=== PATIENT | female | born 1950 ===

== ENCOUNTER 2018-01-11 14:36 | Inpatient (IN) | payer MEDICAID, OTHER ==
[2018-01-11 15:06] VITALS: BMI 27.8
--- NOTE | 2018-01-11 15:34 | ED PDOC ---
Arrival/HPI - General Chief Complaint: Chest Pain Time Seen by Provider: 01/11/18 15:30 Historian: Patient, Family (daughter) - History of Present Illness Narrative History of Present Illness (Text): 01/11/18 15:33 Per daughter, at bedside translating (amharic), pt p/w + 5-6 days onset of intermittent and now constant substernal chest pain (non-radiating), at most pain is 5/10; pt states she is slightly sob, + increased fatigue/weakness; also noted b/l leg swelling and left arm swelling x 6 days; pt [place] the [place] from [facility] last night; pt states she has gained 10lbs of weight over the last 3 weeks; pt states no fever/chills/sweats, no palpitations , no abd pain, no n/v, no numbness/tingling, no urinary/bowel changes, no rashes , no fall/trauma/sick contact. pt denied LOC, no lightheadedness + mild headache pt is here for further eval pt's without other complaints. PCP: None cards: Pamela Foley pt had 4 vessel bypass last year at [facility] pt also received valve replacement last year (bovine) and is on coumadin + hx of breast cancer? Time/Duration: < week Symptom Onset: Gradual Symptom Course: Unchanged Quality: Tightness, Cramping Severity Level: 5, Moderate Activities at Onset: Rest Context: Home Past Medical History - Provider Review Nursing Documentation Reviewed: Yes - Travel History Have you recently traveled outside [place] w/in the past 3 mons?: No - Past History Past History: No Previous - Infectious Disease Hx of Infectious Diseases: None - Reproductive Menopause: Yes Currently : No - Cardiac Hx Cardiac Disorders: Yes Hx Hypertension: Yes Other/Comment: Open heart - Pulmonary Hx Respiratory Disorders: No - Neurological Hx Neurological Disorder: No - HEENT Hx HEENT Disorder: No - Renal Hx Renal Disorder: No - Endocrine/Metabolic Hx Endocrine Disorders: No - Hematological/Oncological Hx Blood Disorders: No - Integumentary Hx Dermatological Disorder: No - Musculoskeletal/Rheumatological Hx Musculoskeletal Disorders: No - Gastrointestinal Hx Gastrointestinal Disorders: No - Genitourinary/Gynecological Hx Genitourinary Disorders: No - Psychiatric Hx Psychophysiologic Disorder: No Hx Substance Use: No - Surgical History Other/Comment: open heart and left breast mastectomy. - Anesthesia Hx Anesthesia: Yes Family/Social History - Physician Review Nursing Documentation Reviewed: Yes Family/Social History: No Known Family HX Smoking Status: Never Smoked Hx Alcohol Use: No Hx Substance Use: No Hx Substance Use Treatment: No Allergies/Home Meds Allergies/Adverse Reactions: Allergies No Known Allergies Allergy (Verified 01/11/18 15:06) Review of Systems - Review of Systems Constitutional: Fatigue, Weight Change Eyes: Normal ENT: Normal Respiratory: SOB Cardiovascular: Chest Pain. absent: Palpitations Gastrointestinal: Normal Genitourinary Female: Normal Musculoskeletal: Normal, Other (lower leg swelling/left arm swelling) Skin: Normal Neurological: Normal Endocrine: Normal Hemo/Lymphatic: Normal Psychiatric: Normal Physical Exam Vital Signs Reviewed: Yes Vital Signs Temp Pulse Resp BP Pulse Ox 01/11/18 15:06 98.6 F 70 18 143/57 L 98 Temperature: Afebrile Blood Pressure: Hypertensive Pulse: Regular Respiratory Rate: Normal Appearance: Positive for: Well-Appearing, Non-Toxic, Uncomfortable, Other ( resting in bed, alert/awake, GCS = 15, oriented x 3, NAD, cooperative) Pain Distress: None Mental Status: Positive for: Alert and Oriented X 3 - Systems Exam Head: Present: Atraumatic, Normocephalic Pupils: Present: PERRL, Other (wearing eyeglasses, no nystagmus, no photophobia , sclera anicteric) Extroacular Muscles: Present: EOMI Conjunctiva: Present: Normal Ears: Present: Normal Mouth: Present: Moist Mucous Membranes, Normal Lips, Normal Teeth Pharnyx: Present: Normal Nose (External): Present: Atraumatic Nose (Internal): Present: Normal Inspection Neck: Present: Normal Range of Motion, Trachea Midline, Other (intact ROM, no step off). No: Meningeal Signs, MIDLINE TENDERNESS Respiratory/Chest: Present: Clear to Auscultation, Good Air Exchange, Other ( coarse basiliar breath sounds, no asymmetries, no tachypenia, no w/r/r). No: Respiratory Distress, Accessory Muscle Use Cardiovascular: Present: Regular Rate and Rhythm, Murmurs (+ loud systolic murmur noted, no clicks), Normal S1, S2. No: Tachycardic Abdomen: Present: Normal Bowel Sounds, Other (well nourished female, no focal tenderness, no springer's sign, no mcburney's point tenderness, no ) Back: Present: Normal Inspection, Other (no step off, no gross deformities). No : CVA Tenderness, Midline Tenderness Upper Extremity: Present: Normal Inspection, Edema (+ extensive left arm swelling with slight redness of forearm skin; no focal tenderness noted on exam , intact ROM, strength 5/5 grossly intact in all limbs), Normal ROM, NORMAL PULSES, Neurovascularly Intact Lower Extremity: Present: Normal Inspection, Edema (+1/5 b/l lower ext distal 1/ 3 of tib/fib; intact ROM, strength 5/5 grossly intact in all limbs, neurovasc intact b/l), NORMAL PULSES, Normal ROM, Neurovascularly Intact, Capillary Refill < 2 s. No: CALF TENDERNESS, Shila's Sign Neurological: Present: GCS=15, CN II-XII Intact, Speech Normal Skin: Present: Warm, Normal Color, Other (cap refill < 1sec, no ulcerations, no petechiae; no rashes) Psychiatric: Present: Alert, Oriented x 3 Medical Decision Making ED Course and Treatment: 01/11/18 15:34 Impression: chest pain, leg swelling, weakness i have consider all the differential diagnosis regarding pt's chief medical complaints/clinical findings, including but are not limited to: chest pain, leg swelling, weakness; r/o ACS A/P: chest pain, leg swelling, weakness - labs - iv - xray - us - observe - supportive care 1630 pt is currently comfortable pt is not in acute distress pt/daughter are made aware of her medical results agrees with admission 01/11/18 17:00 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, made aware, agrees with admission Re-evaluation Time: 17:00 Reassessment Condition: Improving,but remains with symptoms - Lab Interpretations Lab Results: 01/11/18 15:30 01/11/18 15:30 Lab Results 01/11/18 16:30: Urine Color Yellow, Urine Appearance Clear, Urine pH 7.0, Ur Specific [place] 1.015, Urine Protein Negative, Urine Glucose (UA) 250 H, Urine Ketones Negative, Urine Blood Negative, Urine Nitrate Negative, Urine Bilirubin Negative, Urine Urobilinogen 0.2, Ur Leukocyte Esterase Negative 01/11/18 15:30: pO2 42, VBG pH 7.37, VBG pCO2 52.0, VBG HCO3 30.1 H, VBG Total CO2 31.7 H, VBG O2 Sat (Calc) 77.1 H, VBG Base Excess 3.6 H, VBG Potassium 4.2, Sodium 136.0, Chloride 103.0, Glucose 179 H, Lactate 1.7, FiO2 21.0, Venous Blood Potassium 4.2 01/11/18 15:30: Sodium 138, Chloride 102, Potassium 4.5, Carbon Dioxide 28, Anion Gap 12, BUN 16, Creatinine 1.0, Est GFR ( Amer) > 60, Est GFR (Non- Af Amer) 55, Random Glucose 179 H, Calcium 9.3, Magnesium 2.0, Total Bilirubin 0.6, AST 46 H, ALT 92 H, Alkaline Phosphatase 112, Lactate Dehydrogenase 764 H, Total Creatine Kinase 136, Troponin I < 0.01, NT-Pro-B Natriuret Pep 773 H, Total Protein 6.4, Albumin 3.8, Globulin 2.6, Albumin/Globulin Ratio 1.4 01/11/18 15:30: PT 25.2 H, INR 2.18 H, APTT 40.8 H 01/11/18 15:30: WBC 9.2, RBC 4.01, Hgb 12.0, Hct 35.6 L, MCV 88.8, MCH 29.9, MCHC 33.7, RDW 12.8, Plt Count 230, MPV 11.6 H, Gran % 59.4, Lymph % (Auto) 31.3 , [place] % (Auto) 6.1 H, Eos % (Auto) 2.7, Baso % (Auto) 0.5, Gran # 5.43, Lymph # (Auto) 2.9, [place] # (Auto) 0.6, Eos # (Auto) 0.3, Baso # (Auto) 0.05 I have reviewed the lab results: Yes Interpretation: Abnormal lab values (elevated BNP) - RAD Interpretation Narrative RAD Interpretations (Text): 01/11/18 17:36 lower ext u/s with left arm u/s - NO DVT 01/11/18 17:38 CXR - sternotomy wires slightly rotated pulm vascular congestion noted Radiology Orders: 01/11/18 15:31 CHEST PORTABLE [RAD] Stat DUPLEX LOWER EXTRM VEIN BILAT [US] Stat DUPLEX UPPER EXTRM VEIN LEFT [US] Stat Calender Operator Helper: ED Physician, Radiologist - EKG Interpretation EKG Interpretation (Text): 01/11/18 17:38 Sinus rhythm at 65 bpm with 1st degree av block, LAD, no ectopy, non-specific st -t changes, voltage criteria LVH; ABNL EKG; no old ekg to compare with Interpreted by ED Physician: Yes Type: 12 lead EKG Comparison: No previous EKG avail. - Medication Orders Current Medication Orders: Discontinued Medications Furosemide (Lasix) 40 mg IVP STAT STA Stop: 01/11/18 16:58 Disposition/Present on Arrival - Present on Arrival Any Indicators Present on Arrival: No History of DVT/PE: No History of Uncontrolled Diabetes: No Urinary Catheter: No History of Decub. Ulcer: No History Surgical Site Infection Following: None - Disposition Have Diagnosis and Disposition been Completed?: Yes Diagnosis: Chest pain with moderate risk for cardiac etiology, Respiratory distress, Leg edema, Arm edema Disposition: HOSPITALIZED Disposition Time: 17:30 Patient Plan: Admission, Telemetry Condition: STABLE
[2018-01-11 15:56] LABS: VENOUS BLOOD GAS BASE EXCESS 3.6 mmol/L (0.0-2.0); VENOUS BLOOD GAS PO2 42 mm/Hg (30-55); VENOUS BLOOD PH 7.37 (7.32-7.43)
[2018-01-11 16:09] LABS: ALB/GLOB RATIO 1.4 (1.1-1.8); ALBUMIN 3.8 g/dL (3.0-4.8); ALT/SGPT 92 U/L (7-56); AST/SGOT 46 U/L (14-36); BLOOD UREA NITROGEN 16 mg/dL (7-21); CALCIUM 9.3 mg/dL (8.4-10.5); GFR AFRICAN-AMERICAN > 60; GFR NON-AFRICAN AMERICAN 55
[2018-01-11 16:20] LABS: B-TYPE NATRIURETIC PEPTIDE 773 pg/mL (0-450); TROPONIN I < 0.01 ng/mL
[2018-01-11 16:23] LABS: BASO # 0.05 K/mm3 (0.0-2.0); BASO % 0.5 % (0.0-3.0); EOS # 0.3 (0.0-0.7); EOS % 2.7 % (1.5-5.0); GRAN # 5.43 (1.4-6.5); GRAN % 59.4 % (50.0-68.0); LYMPH # 2.9 (1.2-3.4); LYMPH % 31.3 % (22.0-35.0); MEAN CELL VOLUME 88.8 fl (80.0-105.0); MEAN CORPUSCULAR HEMOGLOBIN 29.9 pg (25.0-35.0); MEAN CORPUSCULAR HGB CONC 33.7 g/dl (31.0-37.0); MEAN PLATELET VOLUME 11.6 fl (7.0-11.0); MONO # 0.6 (0.1-0.6); MONO % 6.1 % (1.0-6.0); RBC 4.01 10^6/uL (3.5-6.1); RED CELL DISTRIBUTION WIDTH 12.8 % (11.5-14.5); WHITE BLOOD COUNT 9.2 10^3/ul (4.5-11.0)
[2018-01-11 16:30] LABS: INR 2.18 (0.93-1.08); PARTIAL THROMBOPLASTIN TIME 40.8 Seconds (25.1-36.5); PROTHROMBIN TIME 25.2 SECONDS (9.4-12.5)
[2018-01-11 17:04] LABS: URINE BILIRUBIN NEGATIVE (NEGATIVE); URINE BLOOD NEGATIVE (NEGATIVE); URINE GLUCOSE (UA) 250 mg/dL (NEGATIVE); URINE LEUKOCYTE ESTERASE NEGATIVE Leu/uL (NEGATIVE); URINE PROTEIN NEGATIVE mg/dL (<30 mg/dL); URINE UROBILINOGEN 0.2 E.U./dL (<1 E.U./dL)
[2018-01-11 17:07] LABS: URINE APPEARANCE CLEAR (CLEAR); URINE COLOR YELLOW (YELLOW)
[2018-01-11] MEDS: Vancomycin 1gm in NS 250ml 1 GM/250 ML BAG IVPB SCH (19:05)
--- NOTE | 2018-01-11 19:33 | CP.PCM.HP ---
<Tam Aldana - Last Filed: 01/11/18 20:20> History of Present Illness - History of Present Illness History of Present Illness: Mrs. Isaac is a 67 year old danish speaking female with a past medical history significant for CAD s/p CABG, IDDM2, HTN, HLD, and breast cancer s/p radiation and mastectomy (~1996) who presents with bilateral leg and left arm swelling with associated intermittent substernal non-radiating chest pain, increased fatigue/weakness and mild SOB for the past five days. Patient's daughter was at bedside and provided translation. She reports that the patient recently returned back the [facility] last night where she had been visiting for the past few months. Five days ago, patient awoke to find swelling in both of her legs and her left arm that has since improved. Since yesterday, she has also noticed that her left arm has been red over the affected area. She notes that she has had swelling in her left arm before since her mastectomy some 20 years ago but never for this long and never with the redness. She also reports the previously described chest pain as well as mild SOB that has since resolved as patient reports that she is now free of chest pain or SOB. She does endorse a ten pound weight gain over the course of the past three weeks but denies any sick contacts, trauma, insect/animal bites, fever, chills, headache, changes in her vision, rhinorrhea, sore throat, neck pain/stiffness, chest pain , palpitations, syncope, SOB, cough, wheezing, sputum production, abdominal pain , N/V/D/C, melena, urinary changes, or any numbness/tingling/weakness of any extremity. PMH: CAD s/p four vessel CABG, IDDM2, HTN, HLD, breast cancer s/p radiation and mastectomy (~1996), and ?valve replacement last year (bovine) on coumadin (dose not known) PSH: Mastectomy, CABG, and ?valve replacement Family History: Unknown Social History: Denies any tobacco, alcohol or illicit drug use; Lives at home with her daughter in Allergies: NKDA Home Medications: Patient to have son-in-law send in home medication list [employer]: Nena Foley Present on Admission - Present on Admission Any Indicators Present on Admission: No Review of Systems - Review of Systems Review of Systems: As per HPI, otherwise negative Past Patient History - Infectious Disease Hx of Infectious Diseases: None - Past Social History Smoking Status: Never Smoked - CARDIAC Hx Cardiac Disorders: Yes Hx Hypertension: Yes Other/Comment: Open heart - PULMONARY Hx Respiratory Disorders: No - NEUROLOGICAL Hx Neurological Disorder: No - HEENT Hx HEENT Problems: No - RENAL Hx Chronic Kidney Disease: No - ENDOCRINE/METABOLIC Hx Endocrine Disorders: No - HEMATOLOGICAL/ONCOLOGICAL Hx Blood Disorders: No - INTEGUMENTARY Hx Dermatological Problems: No - MUSCULOSKELETAL/RHEUMATOLOGICAL Hx Musculoskeletal Disorders: No - GASTROINTESTINAL Hx Gastrointestinal Disorders: No - GENITOURINARY/GYNECOLOGICAL Hx Genitourinary Disorders: No - PSYCHIATRIC Hx Psychophysiologic Disorder: No Hx Substance Use: No - SURGICAL HISTORY Other/Comment: open heart and left breast mastectomy. - ANESTHESIA Hx Anesthesia: Yes Meds Allergies/Adverse Reactions: Allergies Allergy/AdvReac Type Severity Reaction Status Date / Time No Known Allergies Allergy Verified 01/11/18 15:06 Physical Exam - Constitutional Appears: Non-toxic, No Acute Distress - Head Exam Head Exam: ATRAUMATIC, NORMOCEPHALIC - Eye Exam Eye Exam: EOMI Pupil Exam: NORMAL ACCOMODATION, PERRL - ENT Exam ENT Exam: Mucous Membranes Moist, Normal Exam - Neck Exam Neck exam: Positive for: Full Rom, Normal Inspection. Negative for: Lymphadenopathy, Tenderness - Respiratory Exam Respiratory Exam: Clear to Auscultation Bilateral, NORMAL BREATHING PATTERN. absent: Accessory Muscle Use, Chest Wall Tenderness, Decreased Breath Sounds, Prolonged Expiratory Phase, Rales, Rhonchi, Wheezes, Respiratory Distress, Stridor - Cardiovascular Exam Cardiovascular Exam: REGULAR RHYTHM, RRR, +S1, +S2, Systolic Murmur (Grade II holosystolic murmur (noted to be chronic by patient)). absent: Bradycardia, Tachycardia, Clicks, Diastolic murmur, Gallop, Irregular Rhythm, JVD, Rubs, +S4 - GI/Abdominal Exam GI & Abdominal Exam: Normal Bowel Sounds, Soft. absent: Tenderness - Extremities Exam Extremities exam: Positive for: full ROM, normal capillary refill, pedal edema ( trace pitting edema b/l L>R to mid tibia), pedal pulses present. Negative for: calf tenderness, joint swelling, normal inspection, tenderness Additional comments: Edema to distal LUE with overlying erythema and no open wounds, areas of fluctuance, induration or purulent drainage - Back Exam Back exam: NORMAL INSPECTION - Neurological Exam Neurological exam: Alert, CN II-XII Intact, Oriented x3, Reflexes Normal - Psychiatric Exam Psychiatric exam: Normal Affect, Normal Mood - Skin Skin Exam: Dry, Warm Results - Vital Signs Recent Vital Signs: Last Vital Signs Temp 98.6 F 01/11/18 15:06 Pulse 70 01/11/18 15:06 Resp 18 01/11/18 15:06 BP 160/75 H 01/11/18 18:31 Pulse Ox 98 01/11/18 15:06 - Labs Result Diagrams: 01/11/18 15:30 01/11/18 15:30 Assessment & Plan - Assessment and Plan (Free Text) Assessment: 67 year old danish speaking female with a past medical history significant for CAD s/p CABG, IDDM2, HTN, HLD, and breast cancer s/p radiation and mastectomy (~ 1996) who presents with bilateral leg and left arm swelling with associated intermittent substernal non-radiating chest pain, increased fatigue/weakness and mild SOB for the past five days. Plan: 1. Chest Pain r/o ACS -Chest X-Ray pending official radiologist interpretation but with mild vascular congestion and no gross effusion, consolidation or mass -EKG showed NSR at 65 beats/min with 1st degree av block, LAD, no ectopy, non- specific st-t changes, and voltage criteria for LVH -Initial troponin negative, serial troponins pending -Heart Healthy Diet -Cardio consulted, all recommendations appreciated 2. Extremity Swelling -Lower Extremity and Upper Extremity preliminarily negative for DVT's -Will need to obtain records from [facility] -Vancomycin 1gm IVPB Q12H for empiric coverage of cellulitis -Lasix 20mg IVP daily 3. History of CAD s/p CABG -EKG as noted above -ASA 81mg PO daily and Coreg 6.25mg PO BID 4. History of IDDM2 -ISS-Low and Accuchecks ACHS -Carbohydrate consistent diet 5. History of HTN -Zestril 5mg PO daily 6. History of HLD -Lipitor 10mg 7. Transaminitis -Hepatitis panel and Acetaminophen level pending GI Prophylaxis: Protonix DVT Prophylaxis: Heparin and SCD's (Holding home coumadin until diagnosis and dosage can be confirmed by [facility] records and pharmacy, respectively) Patient seen and case discussed with attending, Dr. Crowley. - Date & Time Date: 01/11/18 Time: 19:38 <Costa Crowley - Last Filed: 01/12/18 10:26> Results - Vital Signs Recent Vital Signs: Last Vital Signs Temp 98.1 F 01/12/18 07:49 Pulse 58 L 01/12/18 07:49 Resp 20 01/12/18 07:49 BP 132/62 01/12/18 07:49 Pulse Ox 98 01/12/18 07:49 - Labs Result Diagrams: 01/12/18 03:15 01/12/18 03:15 Labs: Laboratory Results - last 24 hr 01/11/18 01/11/18 01/12/18 21:09 21:40 03:15 WBC 9.0 RBC 4.28 Hgb 13.0 Hct 37.5 MCV 87.6 MCH 30.4 MCHC 34.7 RDW 12.7 Plt Count 238 MPV 11.1 H Gran % 50.9 Lymph % (Auto) 36.7 H [place] % (Auto) 8.2 H Eos % (Auto) 3.8 Baso % (Auto) 0.4 Gran # 4.56 Lymph # (Auto) 3.3 [place] # (Auto) 0.7 H Eos # (Auto) 0.3 Baso # (Auto) 0.04 PT INR APTT Sodium Potassium Chloride Carbon Dioxide Anion Gap BUN Creatinine Est GFR ( Amer) Est GFR (Non-Af Amer) POC Glucose (mg/dL) 144 H Random Glucose Calcium Total Bilirubin AST ALT Alkaline Phosphatase Troponin I < 0.01 Total Protein Albumin Globulin Albumin/Globulin Ratio 01/12/18 01/12/18 01/12/18 03:15 04:30 07:18 WBC RBC Hgb Hct MCV MCH MCHC RDW Plt Count MPV Gran % Lymph % (Auto) [place] % (Auto) Eos % (Auto) Baso % (Auto) Gran # Lymph # (Auto) [place] # (Auto) Eos # (Auto) Baso # (Auto) PT 24.1 H INR 2.06 H APTT 39.9 H Sodium 141 Potassium 3.7 Chloride 102 Carbon Dioxide 32 Anion Gap 11 BUN 19 Creatinine 0.9 Est GFR ( Amer) > 60 Est GFR (Non-Af Amer) > 60 POC Glucose (mg/dL) 111 H Random Glucose 103 Calcium 9.5 Total Bilirubin 0.8 AST 45 H ALT 80 H Alkaline Phosphatase 114 Troponin I < 0.01 Total Protein 6.4 Albumin 3.7 Globulin 2.7 Albumin/Globulin Ratio 1.4 Attending/Attestation - Attestation I have personally seen and examined this patient.: Yes I have fully participated in the care of the patient.: Yes I have reviewed all pertinent clinical information: Yes Notes (Text): 01/12/18 10:21 Attending note; Patient seen and examined with resident. Patient is a 67 year old danish speaking female with a past medical history significant for CAD s/p CABG, diabetes, hypertension, hyperlipidemia and breast cancer s/p radiation and mastectomy (~1996) who presents with bilateral leg and left arm swelling with associated intermittent substernal non-radiating chest pain. This is the first admission to [facility]. The patient had CABG and follow-up Done at [facility]. Patient just came back from [facility] yesterday. Patient noticed leg swelling for the past few days. Possible systolic CHF. Started on IV Lasix. Lower extremity Doppler is negative for DVT. Atypical chest pressure; EKG with no acute ST-T changes. Cardiac enzymes 3 ordered. Cardiology evaluation requested. Echocardiogram ordered. Monitor input and output. Dietary education given. Daily weights ordered. Diabetes; continue insulin. We will get medical records from [facility]. Left upper arm swelling; Doppler preliminary is negative. Secondary to lymphedema post left breast cancer surgery. Mild redness started on vancomycin. Monitor closely in telemetry bed. Patient's family is instructed to bring in medication list from home. Upon discharge the patient will follow-up with [facility]. 01/12/18 10:24 01/12/18 10:26
[2018-01-11 22:09] VITALS: RESP 20
[2018-01-11] MEDS: Insulin Reg-LOW-Coverage SC SCH (22:11)
[2018-01-12 03:36] LABS: BASO # 0.04 K/mm3 (0.0-2.0); BASO % 0.4 % (0.0-3.0); EOS # 0.3 (0.0-0.7); EOS % 3.8 % (1.5-5.0); GRAN # 4.56 (1.4-6.5); GRAN % 50.9 % (50.0-68.0); LYMPH # 3.3 (1.2-3.4); LYMPH % 36.7 % (22.0-35.0); MEAN CELL VOLUME 87.6 fl (80.0-105.0); MEAN CORPUSCULAR HEMOGLOBIN 30.4 pg (25.0-35.0); MEAN CORPUSCULAR HGB CONC 34.7 g/dl (31.0-37.0); MEAN PLATELET VOLUME 11.1 fl (7.0-11.0); MONO # 0.7 (0.1-0.6); MONO % 8.2 % (1.0-6.0); RBC 4.28 10^6/uL (3.5-6.1); RED CELL DISTRIBUTION WIDTH 12.7 % (11.5-14.5)
[2018-01-12 03:51] LABS: ALB/GLOB RATIO 1.4 (1.1-1.8); ALBUMIN 3.7 g/dL (3.0-4.8); ALT/SGPT 80 U/L (7-56); AST/SGOT 45 U/L (14-36); BLOOD UREA NITROGEN 19 mg/dL (7-21); CALCIUM 9.5 mg/dL (8.4-10.5); GFR AFRICAN-AMERICAN > 60; GFR NON-AFRICAN AMERICAN > 60
[2018-01-12 04:02] LABS: TROPONIN I < 0.01 ng/mL
[2018-01-12] MEDS: Vancomycin 1gm in NS 250ml 1 GM/250 ML BAG IVPB SCH ×2 (05:04→18:16)
[2018-01-12] MEDS: Pantoprazole 40 mg EC Tab PO SCH (05:06)
[2018-01-12 05:20] LABS: INR 2.06 (0.93-1.08); PROTHROMBIN TIME 24.1 SECONDS (9.4-12.5)
[2018-01-12 05:21] LABS: PARTIAL THROMBOPLASTIN TIME 39.9 Seconds (25.1-36.5)
[2018-01-12] MEDS: Insulin Reg-LOW-Coverage SC SCH ×4 (08:08→22:05)
--- NOTE | 2018-01-12 08:50 | RAD ---
HISTORY: chest pain, sob COMPARISON: No prior. FINDINGS: LUNGS: No active pulmonary disease. PLEURA: No significant pleural effusion identified, no pneumothorax apparent. CARDIOVASCULAR: Post CABG changes are appreciated as well as prosthetic cardiac valve. OSSEOUS STRUCTURES: No significant abnormalities. VISUALIZED UPPER ABDOMEN: Another left hemidiaphragm again appreciated of indeterminate etiology. Surgical clips are seen at the epigastric region. OTHER FINDINGS: None. IMPRESSION: Mildly elevated left hemidiaphragm. No infiltrate, pulmonary vascular congestion or effusion bilaterally.
--- NOTE | 2018-01-12 09:48 | US ---
PROCEDURE: Left upper extremity venous ultrasound HISTORY: Arm pain and swelling. Evaluate for deep venous thrombosis. PHYSICIAN(S): Kiet Carey MD. FINDINGS: The visualized leftinternal jugular vein is sonographically normal and compressible. No evidence of obstruction or thrombus is seen. The visualized segments of the left subclavian vein are patent with normal waveforms. No sonographic evidence of obstruction or thrombosis is seen. The visualized deep venous system of the proximal leftupper extremity is sonographically normal and compressible. IMPRESSION: 1. No sonographic evidence for deep venous thrombosis in the visualized segments of the left upper extremity.
--- NOTE | 2018-01-12 09:49 | US ---
HISTORY: Leg pain and swelling. Evaluate for DVT PHYSICIAN(S): Kiet Carey MD. TECHNIQUE: Duplex sonography and color-flow Doppler with graded compression were used to evaluate the deep venous systems of both lower extremities. FINDINGS: The visualized deep venous systems of both lower extremities are sonographically normal and compressible. Normal wave forms and augmentation are seen. There is no sonographic evidence for deep venous thrombosis in the visualized segments of both lower extremities. IMPRESSION: No sonographic evidence for deep venous thrombosis in the visualized segments of both lower extremities.
--- NOTE | 2018-01-12 10:36 | CP.PCM.PN ---
<Tam Aldana - Last Filed: 01/12/18 10:32> Subjective - Date & Time of Evaluation Date of Evaluation: 01/12/18 Time of Evaluation: 10:32 - Subjective Subjective: Medicine Progress Note: Patient seen and assessed at bedside. No acute events overnight reported by patient or nursing staff. Patient reports that she has noticed a reduction in her leg and arm swelling since yesterday. She denies any fevers, chills, headache, chest pain, SOB, abdominal pain, N/V/D/C, urinary changes, skin changes or any numbness/tingling/weakness of any extremity. Objective - Vital Signs/Intake and Output Vital Signs (last 24 hours): Temp Pulse Resp BP Pulse Ox 98.1 F 58 L 20 132/62 98 01/12/18 07:49 01/12/18 07:49 01/12/18 07:49 01/12/18 07:49 01/12/18 07:49 Intake and Output: 01/12/18 01/12/18 06:59 18:59 Intake Total 0 Balance 0 - Medications Medications: Current Medications Amlodipine Besylate (Norvasc) 5 mg PO DAILY CHARU Aspirin (Ecotrin) 81 mg PO DAILY CHARU Atorvastatin Calcium (Lipitor) 10 mg PO DAILY CHARU Furosemide (Lasix) 40 mg IVP DAILY CHARU Vancomycin HCl (Vancomycin 1gm) 1 gm in 250 mls @ 167 mls/hr IVPB Q12H CHARU PRN Reason: Protocol Last Admin: 01/12/18 05:04 Dose: 167 mls/hr Insulin Human Regular (Humulin R Low) 0 units SC ACHS CHARU PRN Reason: Protocol Last Admin: 01/12/18 08:08 Dose: Not Given Metoprolol Tartrate (Lopressor) 25 mg PO DAILY [facility] Non-Formulary Medication (Losartan) 50 mg PO BID CHARU Pantoprazole Sodium (Protonix Ec Tab) 40 mg PO 0600 CHARU Last Admin: 01/12/18 05:06 Dose: 40 mg Warfarin Sodium (Coumadin) 2 mg PO 1800 CHARU PRN Reason: Protocol - Labs Labs: 01/12/18 03:15 01/12/18 03:15 PT 24.1 SECONDS (9.4-12.5) H 01/12/18 04:30 INR 2.06 (0.93-1.08) H 01/12/18 04:30 APTT 39.9 Seconds (25.1-36.5) H 01/12/18 04:30 - Constitutional Appears: Non-toxic, No Acute Distress - Head Exam Head Exam: ATRAUMATIC, NORMOCEPHALIC - Eye Exam Eye Exam: EOMI, Normal appearance Pupil Exam: NORMAL ACCOMODATION, PERRL - ENT Exam ENT Exam: Mucous Membranes Moist, Normal Exam - Neck Exam Neck Exam: Full ROM, Normal Inspection. absent: Lymphadenopathy, Tenderness - Respiratory Exam Respiratory Exam: Clear to Ausculation Bilateral, NORMAL BREATHING PATTERN. absent: Accessory Muscle Use, Rales, Rhonchi, Wheezes, Respiratory Distress - Cardiovascular Exam Cardiovascular Exam: REGULAR RHYTHM, RRR, +S1, +S2, Murmur (Grade II holosystolic murmur (noted to be chronic by patient)). absent: Bradycardia, Tachycardia, Clicks, Diastolic murmur, Gallop, Irregular Rhythm, JVD, Rubs, +S4 - GI/Abdominal Exam GI & Abdominal Exam: Soft, Normal Bowel Sounds. absent: Distended, Firm, Guarding, Rigid, Tenderness, Rebound - Extremities Exam Extremities Exam: Calf Tenderness, Full ROM, Normal Capillary Refill, Pedal Edema (trace pitting edema b/l L>R to distal tibia noticed to be improved since previous exam). absent: Joint Swelling, Normal Inspection, Tenderness Additional comments: Edema to distal LUE with overlying erythema and no open wounds, areas of fluctuance, induration or purulent drainage; Noted to be improved since previous exam - Back Exam Back Exam: NORMAL INSPECTION - Neurological Exam Neurological Exam: Alert, Awake, CN II-XII Intact, Oriented x3 - Psychiatric Exam Psychiatric exam: Normal Affect, Normal Mood - Skin Skin Exam: Dry, Intact, Warm Assessment and Plan - Assessment and Plan (Free Text) Assessment: 67 year old macedonian speaking female with a past medical history significant for CAD s/p CABG, IDDM2, HTN, HLD, and breast cancer s/p radiation and mastectomy (~ 1996) who presents with bilateral leg and left arm swelling with associated intermittent substernal non-radiating chest pain, increased fatigue/weakness and mild SOB for the past five days. Plan: 1. Chest Pain r/o ACS -Chest X-Ray showed mildly elevated left hemidiaphragm, post-CABG changes, prosthetic heart valve and no infiltrate, PVC or effusions bilaterally -EKG showed NSR at 65 beats/min with 1st degree av block, LAD, no ectopy, non- specific st-t changes, and voltage criteria for LVH -Three serial troponins negative -Heart Healthy Diet -Cardiology consulted, all recommendations appreciated 2. Extremity Swelling -Lower Extremity and Upper Extremity Duplex U/S negative for DVT's -BNP mildly elevated at 773 -Will need to obtain records from [facility] on Saturday -Vancomycin 1gm IVPB Q12H for empiric coverage of cellulitis -Lasix 40mg IVP daily 3. History of Valve Replacement -Coumadin 2mg PO daily -INR currently 2.06 -Continue to monitor with daily INR 4. History of CAD s/p CABG -EKG as noted above -ASA 81mg PO daily and Lopressor 25mg PO daily 5. History of IDDM2 -ISS-Low and Accuchecks ACHS -Carbohydrate consistent diet 6. History of HTN -Losartan 50mg PO BID and Norvasc 5mg PO daily 7. History of HLD -Lipitor 10mg PO daily 8. Transaminitis -Acetaminophen level <10 -Hepatitis panel pending GI Prophylaxis: Protonix DVT Prophylaxis: Coumadin Patient seen and case discussed with attending, Dr. Crowley. <Cosat Crowley - Last Filed: 01/12/18 13:41> Objective - Vital Signs/Intake and Output Vital Signs (last 24 hours): Temp Pulse Resp BP Pulse Ox 98.1 F 58 L 20 132/62 98 01/12/18 07:49 01/12/18 07:49 01/12/18 07:49 01/12/18 10:29 01/12/18 07:49 Intake and Output: 01/12/18 01/12/18 06:59 18:59 Intake Total 0 Balance 0 - Medications Medications: Current Medications Amlodipine Besylate (Norvasc) 5 mg PO DAILY CHARU Aspirin (Ecotrin) 81 mg PO DAILY CHARU Atorvastatin Calcium (Lipitor) 10 mg PO DAILY CHARU Furosemide (Lasix) 40 mg IVP DAILY CHARU Last Admin: 01/12/18 10:29 Dose: 40 mg Vancomycin HCl (Vancomycin 1gm) 1 gm in 250 mls @ 167 mls/hr IVPB Q12H CHARU PRN Reason: Protocol Last Admin: 01/12/18 05:04 Dose: 167 mls/hr Insulin Human Regular (Humulin R Low) 0 units SC ACHS CHARU PRN Reason: Protocol Last Admin: 01/12/18 13:08 Dose: 2 units Losartan Potassium (Cozaar) 50 mg PO BID CHARU Metoprolol Tartrate (Lopressor) 25 mg PO DAILY CHARU Pantoprazole Sodium (Protonix Ec Tab) 40 mg PO 0600 CHARU Last Admin: 01/12/18 05:06 Dose: 40 mg Warfarin Sodium (Coumadin) 2 mg PO 1800 CHARU PRN Reason: Protocol - Labs Labs: 01/12/18 03:15 01/12/18 03:15 PT 24.1 SECONDS (9.4-12.5) H 01/12/18 04:30 INR 2.06 (0.93-1.08) H 01/12/18 04:30 APTT 39.9 Seconds (25.1-36.5) H 01/12/18 04:30 Attending/Attestation - Attestation I have personally seen and examined this patient.: Yes I have fully participated in the care of the patient.: Yes I have reviewed all pertinent clinical information, including history, physical exam and plan: Yes Notes (Text): 01/12/18 13:38 Attending note; Patient seen and examined with resident. Patient is a 67 year old macedonian speaking female with a past medical history significant for CAD s/p CABG, diabetes, hypertension, hyperlipidemia and breast cancer s/p radiation and mastectomy (~1996) who presents with bilateral leg and left arm swelling with associated intermittent substernal non-radiating chest pain. The patient had CABG and follow-up Done at [facility]. Patient just came back from [facility]. Possible systolic CHF. Started on IV Lasix. Leg swelling is improving. Lower extremity Doppler is negative for DVT. Atypical chest pressure; EKG with no acute ST-T changes. Cardiac enzymes 3 negative. Cardiology evaluation requested. Echocardiogram ordered. Monitor input and output. Dietary education given. Daily weights ordered. Diabetes; continue insulin. We will get medical records from [facility]. Left upper arm swelling; Doppler is negative for DVT. Secondary to lymphedema post left breast cancer surgery. Mild redness started on vancomycin. On Coumadin; INR is therapeutic. Possible discharge home tomorrow if clinically stable. Upon discharge the patient will follow-up with [facility].
[2018-01-12 13:35] LABS: HEPATITIS B SURFACE AG Negative (NEGATIVE)
[2018-01-12 13:41] LABS: HEPATITIS A IGM NEGATIVE (NEGATIVE); HEPATITIS B CORE AB NEGATIVE (NEGATIVE)
[2018-01-12 13:53] LABS: HEPATITIS C ANTIBODY NEGATIVE (NEGATIVE)
--- NOTE | 2018-01-12 19:14 | CON ---
DATE: 01/12/2018 CARDIOLOGY CONSULTATION (FOR DR. LEVY) HISTORY OF PRESENT ILLNESS: The patient is a 67-year-old woman who comes from [place]. She states she has a history of coronary artery bypass surgery, had an episode of transient edema in the lower extremities. However, the patient had what sounded like breast CA in the past which has caused edema in the left arm. She denies chest pain, denies shortness of breath. She has gained weight and has complained of intermittent edema in the lower extremities. PAST MEDICAL HISTORY: Includes diabetes mellitus, hypercholesterolemia, hypertension, and is on warfarin for questionable reasons. She denies chest pain, denies shortness of breath. REVIEW OF SYSTEMS: Fourteen-point review of systems was essentially negative today. PHYSICAL EXAMINATION: VITAL SIGNS: Blood pressure 132/62, the heart rates in the 50s. Normal sinus rhythm. NECK: Negative JVD. LUNGS: Without rales. HEART: Reveals S1, S2. EXTREMITIES: Without edema. EKG shows no acute changes. LABORATORY DATA: Hemoglobin is 13. Troponins are negative x2. IMPRESSION: 1. Transient edema in the lower extremities with persistent edema in the left upper extremity. 2. History of coronary artery bypass surgery. 3. No evidence of acute coronary syndrome. 4. Diabetes mellitus. 5. Hypertension. 6. Hypercholesterolemia. 7. History of coronary artery disease with bypass in the [place]. Given these findings, an echocardiogram has been ordered. There is no evidence for acute coronary syndrome. In the morning, we will return the care back to Dr. Levy. Kiet Lockhart MD
--- NOTE | 2018-01-12 23:19 | CARD ---
APPROVED REPORT EKG Measurement Heart [id number] <Conclusion> Sinus rhythm with 1st degree AV block Left anterior fascicular block Left ventricular hypertrophy with repolarization abnormality Abnormal ECG
[2018-01-13] MEDS: Pantoprazole 40 mg EC Tab PO SCH (06:00)
[2018-01-13] MEDS: Vancomycin 1gm in NS 250ml 1 GM/250 ML BAG IVPB SCH (06:00)
[2018-01-13 06:33] LABS: BASO # 0.06 K/mm3 (0.0-2.0); BASO % 0.7 % (0.0-3.0); EOS # 0.5 (0.0-0.7); EOS % 5.9 % (1.5-5.0); GRAN # 3.62 (1.4-6.5); GRAN % 42.9 % (50.0-68.0); HEMOGLOBIN 12.4 g/dL (12.0-16.0); LYMPH # 3.6 (1.2-3.4); LYMPH % 42.4 % (22.0-35.0); MEAN CELL VOLUME 88.7 fl (80.0-105.0); MEAN CORPUSCULAR HEMOGLOBIN 29.1 pg (25.0-35.0); MEAN CORPUSCULAR HGB CONC 32.8 g/dl (31.0-37.0); MEAN PLATELET VOLUME 11.6 fl (7.0-11.0); MONO # 0.7 (0.1-0.6); MONO % 8.1 % (1.0-6.0); RBC 4.26 10^6/uL (3.5-6.1); WHITE BLOOD COUNT 8.4 10^3/ul (4.5-11.0)
[2018-01-13 06:45] LABS: INR 1.7 (0.93-1.08); PROTHROMBIN TIME 19.8 SECONDS (9.4-12.5)
[2018-01-13 06:51] LABS: ALB/GLOB RATIO 1.3 (1.1-1.8); ALBUMIN 3.4 g/dL (3.0-4.8); ALT/SGPT 59 U/L (7-56); AST/SGOT 31 U/L (14-36); BLOOD UREA NITROGEN 22 mg/dL (7-21); CALCIUM 9.3 mg/dL (8.4-10.5); GFR AFRICAN-AMERICAN > 60; GFR NON-AFRICAN AMERICAN > 60
[2018-01-13 08:12] VITALS: BP 128/62; TEMP 97.6; O2SAT 99
[2018-01-13] MEDS: Insulin Reg-LOW-Coverage SC SCH ×3 (11:22→17:12)
--- NOTE | 2018-01-13 16:52 | CARD ---
APPROVED REPORT EXAM: Two-dimensional and M-mode echocardiogram with Doppler and color Doppler. INDICATION LVFX 2D DIMENSIONS Left Atrium (2D)3.4 (1.6-4.0cm)IVSd1.1 (0.7-1.1cm) LVDd3.7 (3.9-5.9cm)PWd1.2 (0.7-1.1cm) LVDs2.2 (2.5-4.0cm)FS (%) 38.8 % LVEF (%)70.0 (>50%) M-Mode DIMENSIONS Aortic Root2.70 (2.2-3.7cm)Aortic Cusp Exc.1.40 (1.5-2.0cm) Aortic Valve AoV Peak Tbvolvey604.0cm/sAoV VTI58.5cmAO Peak GR.26mmHg LVOT Peak Duvbpmqs100.0cm/sLVOT VTI30.40cmAO Mean GR.15mmHg Mitral Valve MV E Ngobvbfx451.0cm/sMV A Ojgbvbyi93.1cm/sE/A ratio1.5 TDI Lateral E' Peak V12.10cm/sMedial E' Peak V6.34cm/sE/Lateral E'10.5 E/Medial E'20.0 Pulmonary Valve PV Peak Myrvofrk946.0cm/sPV Peak Grad.4mmHg Tricuspid Valve TR Peak Qlchusdl237le/sRAP DUNPRVSG89bqCxRT Peak Gr.32mmHg [id number] LEFT VENTRICLE The left ventricle is normal size. There is normal left ventricular wall thickness. The left ventricular function is normal.EF-65-70% There is normal LV segmental wall motion. The left ventricular diastolic function is normal. No left ventricle thrombus noted on this study. There is no ventricular septal defect visualized. There is no left ventricular aneurysm. There is no mass noted in the left ventricle. RIGHT VENTRICLE The right ventricle is normal size. There is normal right ventricular wall thickness. The right ventricular systolic function is normal. ATRIA The left atrium is borderline dilated. in long axis The right atrium is borderline dilated. in long axis. The interatrial septum is intact with no evidence for an atrial septal defect. AORTIC VALVE The aortic valve is calcified and displays decreased opening. There is trace aortic regurgitation. There is trace valvular aortic stenosis. There is no aortic valvular vegetation. MITRAL VALVE The mitral valve is thickened but opens well. Mitral annular calcification is moderate. Mitral regurgitation is mild. There is no mitral valve stenosis. There is no evidence of mitral valve prolapse. TRICUSPID VALVE The tricuspid valve leaflets are thickened , but open well. There is mild tricuspid regurgitation.RVSP-42 mmof hg. There is no tricuspid valve stenosis. There is no tricuspid valve prolapse or vegetation. PULMONIC VALVE The pulmonic valve is mildly thickened. There is trace pulmonic valvular regurgitation. There is no pulmonic valvular stenosis. GREAT VESSELS The aortic root is normal in size. The ascending aorta is normal in size. The pulmonary artery is normal. The IVC is normal in size and collapses >50% with inspiration. PERICARDIAL EFFUSION There is no pleural effusion. There is no pericardial effusion. <Conclusion> The left ventricle is normal size. There is normal left ventricular wall thickness. The left ventricular function is normal.EF-65-70% There is no aortic valvular vegetation. Mitral regurgitation is mild. There is mild tricuspid regurgitation.RVSP-42 mmof hg. The IVC is normal in size and collapses >50% with inspiration. There is no pericardial effusion.
[2018-01-13 17:16] VITALS: PULSE 59
--- NOTE | 2018-01-13 19:54 | PN ---
DATE: 01/13/2018 REASON FOR CONSULTATION AND FOLLOWUP: Cardiac evaluation, history of coronary artery disease, history of CABG. SUBJECTIVE: The patient denies chest pain, shortness of breath or any palpitation. Information obtained through the nurse who speaks Gu[place] about the patient. The patient complained of swelling of the leg and pain in the left arm and leg. Denies any chest pain, shortness of breath or any palpitation. OBJECTIVE: GENERAL: Not in any apparent distress, lying flat in the bed. VITAL SIGNS: As follows: Temperature afebrile, heart rate 55, blood pressure 130/62. HEENT: PERRLA. Extraocular muscles intact. NECK: Supple. No carotid bruits or thyromegaly. CHEST: Clear to auscultation. HEART: S1, S2 regular. ABDOMEN: Soft. EXTREMITIES: Clubbing and cyanosis negative. LABORATORY DATA: Blood workup as follows: WBC 8.5, hemoglobin 12.4, hematocrit 37.8, platelet count 255. Chemistry shows sodium 130, potassium 3.9, chloride 99, carbon dioxide , anion gap of 10, BUN 22, creatinine 0.9. Troponin x3 negative. IMPRESSION: A 67-year-old female with past medical history of coronary artery disease, status post coronary artery bypass grafting in 06/2017, complaining of gradually edema of the lower extremities and upper extremities. Denies any chest pain or shortness of breath. No evidence of congestive heart failure or acute coronary syndrome. Diabetes, hypertension, hyperlipidemia, history of coronary artery disease, status post coronary artery bypass grafting surgery at [facility]. No evidence of acute myocardial infarction or coronary syndrome. RECOMMENDATIONS: Patient is being followed by PMD at [facility]. Patient is currently in sinus rhythm, but she is on Coumadin, reasons unknown. History of breast cancer, history of mastectomy and history of radiation, status post AVR, but unknown why the patient is on Coumadin. No evidence of acute OH. Discontinue telemetry, follow up with PMD, continue low salt and continue doxycycline, aspirin, Lasix, beta-lakesha. No evidence of acute OH, no further intervention or complaint of the chest pain, no anginal symptoms, no evidence of CHF. We will follow with you. No evidence of arrhythmia. INR is subtherapeutic. So, we suggest to start 5 mg of Coumadin today and continue 2 mg from tomorrow. We will change Coumadin to 2 mg from tomorrow. We will give 5 today. Continue Lasix. We will put 5 mg of Coumadin today. Patient is okay to be discharged from Cardiology point of view. We will sign off and glad to follow p.r.n. Thank you, Dr. Avila, for providing us the opportunity in taking care of the patient Nancy Isaac. Lizzy Cardoza MD
== END 2018-01-13 17:19 | disposition home or self-care (01) | DRG 313 ==
LOC: ED 14:36 → ERH 16:57 → 3RNO 20:04
PROVIDERS: ADMIT Internal Medicine; ATTEND Hospitalist
DX: R07.89 Other chest pain (principal); I89.0 Lymphedema, not elsewhere classified; M79.89 Other specified soft tissue disorders; I25.10 Atherosclerotic heart disease of native coronary artery without angina pectoris; E11.9 Type 2 diabetes mellitus without complications; R53.1 Weakness; E78.5 Hyperlipidemia, unspecified; I10 Essential (primary) hypertension; E78.00 Pure hypercholesterolemia, unspecified; Z79.4 Long term (current) use of insulin; Z85.3 Personal history of malignant neoplasm of breast; Z90.12 Acquired absence of left breast and nipple; Z92.3 Personal history of irradiation; Z95.1 Presence of aortocoronary bypass graft